=== PATIENT | female | born 1965 | race Caucasian/White ===

== ENCOUNTER 2018-02-21 06:35 | Day surgery (SDC) | payer OTHER ==
[~2018-02-21 06:35] MED LIST: ACETAMINOOPHEN-1 TAB PO; CIPRO500 MG PO; LOVENOX40 MG/0.4 SQ; NEURONTIN300 MG PO; ORPH100T PO; TRAM1TAB98 PO
== END 2018-02-21 12:10 | disposition home or self-care (01) ==
LOC: AMB-ENDOS 06:35
DX: Z08 Encounter for follow-up examination after completed treatment for malignant neoplasm (principal); Z85.038 Personal history of other malignant neoplasm of large intestine

== ENCOUNTER 2019-04-03 05:55 | Day surgery (SDC) | payer OTHER | END 2019-04-03 11:45 | disposition home or self-care (01) | LOC: AMB-ENDOS 05:55 | DX: K63.89 Other specified diseases of intestine (principal); Z85.038 Personal history of other malignant neoplasm of large intestine ==

== ENCOUNTER 2020-05-27 11:30 | Inpatient (IN) | payer OTHER ==
[~2020-05-27] VITALS: Ht 157.5 cm; Wt 107.5 kg
[2020-05-27] MEDS ORDERED: ASPIRI PO (14:47)
[2020-05-27] MEDS ORDERED: NAPRO PO (14:47)
[2020-06-02] MEDS ORDERED: NAPROXEN SODIU220 M1 PO (08:13)
[2020-06-02] MEDS ORDERED: CHILDREN'S ASPI81 MG PO (08:14)
== END 2020-06-02 10:26 | disposition home or self-care (01) | DRG 583 ==
LOC: O/R 06-01 06:44 → SURG 06-01 06:44 → O/R 06-01 09:45 → SURG 06-01 14:12
PROVIDERS: ADMIT Specialist; ATTEND Specialist
PROC: 0HTT0ZZ Resection of Right Breast, Open Approach (ICD-10-PCS; principal; 2020-06-01 09:45)
DX: D05.81 Other specified type of carcinoma in situ of right breast (principal); I10 Essential (primary) hypertension

== ENCOUNTER → 2021-02-01 | Outpatient (CLI) | payer OTHER ==
[~2021-02-01] MED LIST changes: +ASPIRI PO; +CHILDREN'S ASPI81 MG PO; +NAPRO PO; +NAPROXEN SODIU220 M1 PO
== END | disposition home or self-care (01) ==
LOC: NUCLEAR 01-26 07:00
PROVIDERS: ATTEND Internal Medicine Hematology & Oncology
DX: C18.7 Malignant neoplasm of sigmoid colon (principal); C51.8 Malignant neoplasm of overlapping sites of vulva
CPT/HCPCS: 78816; A9552